=== PATIENT | female | born 1995 | race Hispanic/Latino ===

== ENCOUNTER → 2021-05-11 09:36 | Outpatient (CLI) | payer OTHER, SELFPAY ==
--- NOTE | 2021-05-11 09:42 | DI.US.S_ITS ---
PROCEDURE: US OB <= 14 WEEKS FETUS INDICATIONS: DATING. OUTSIDE/PRIOR DATING DATA: Last menstrual period (LMP): January 18, 2021. LMP-based estimated date of delivery (DONALD): October 25, 2021. First dating scan (date and location): May 11, 2021. Estimated date of delivery (DONALD) from first dating scan: November 20, 2021. TECHNIQUE: Real-time scanning was performed of the fetus and maternal pelvic organs, with image documentation. Endovaginal scanning was also performed to better visualize the fetus and maternal ovaries. COMPARISON: None. FINDINGS: Embryo: Single living intrauterine gestation is present with an estimated sonographic gestational age of approximately 12 weeks and 3 days based off crown-rump length measurement of 5.8 cm. There is suggestion of a protruding mass from the anterior abdominal wall containing possible stomach and abdominal organs. No perigestational hemorrhage. Heart rate: 160 Measurement variability in dating: +/- 4 weeks by LMP, +/- 7 days by mean sac diameter (use before 6 weeks gestation if crown-rump length not able to be measured), +/- 5 days by crown-rump length (up to 8 weeks 6 days gestation), +/- 7 days by crown-rump length (up to 13 weeks 6 days gestation). Maternal organs: Ovaries demonstrate probable left corpus luteal cyst. IMPRESSION: Single living intrauterine gestation with estimated sonographic gestational age of approximately 12 weeks and 3 days based off crown-rump length measurement. This correlates with estimated dated delivery of approximately November 20, 2021. Dating between last menstrual period and sonographic measurements are discordant. Suggestion of protruding anterior abdominal mass containing possible stomach and other abdominal organs. 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 Recommend correlation with maternal risk factors and maternal medicine consultation to further evaluate and confirm. Dictated by: Iain Lowry M.D. on 05/11/2021 at 10:57 Approved by: Iain Lowry M.D. on 05/11/2021 at 11:07
== END ==
PROVIDERS: Referring Provider Specialist; Visit Provider Specialist
DX: Z34.02 Encounter for supervision of normal first pregnancy, second trimester (principal); Z3A.12 12 weeks gestation of pregnancy
CPT/HCPCS: 76801; 76817

== ENCOUNTER → 2021-05-19 15:51 | Outpatient (CLI) | payer OTHER, SELFPAY ==
[2021-05-19 16:15] LABS: Add Manual Diff / Slide Review NO; Basophils Absolute Auto 0 /uL (0-100); Basophils Percent Auto 0.4 % (0-2); Eosinophils Absolute Auto 100 /uL (0-450); Eosinophils Percent Auto 1.7 % (2-4); Hematocrit 35.4 % (36-46); Hemoglobin 12.1 g/dL (12.0-16.0); Lymphocytes Absolute Auto 1500 /uL (1100-4500); Lymphocytes Percent Auto 17.7 % (25-40); Mean Corpuscular Hemoglobin 28.9 PG (26-34); Mean Corpuscular Volume 85.1 fL (80-100); Monocytes Absolute Auto 400 /uL (0-900); Neutrophils Absolute Auto 6200 /uL (1500-7000); Neutrophils Percent Auto 75.2 % (50-75); Platelet Count 207 X10^3/uL (150-400); Red Blood Cell Count 4.17 X10^6/uL (4.0-5.2); Red Cell Distribution Width 13.3 % (11.6-14.8); White Blood Cell Count 8.2 X10^3/uL (4.5-11.0)
[2021-05-19 18:56] LABS: HIV 1 & 2 Ab/Ag 4th Gen Combo NEGATIVE (NEGATIVE); Hep C Virus Ab w/Reflex Quant NEGATIVE s/c (NEGATIVE); Hepatitis B Surface Antigen NEGATIVE s/c (NEGATIVE); Rubella Antibody IgG 12.3 IU/mL (>15)
[2021-05-19 19:43] LABS: Appearance Urine UA SL CLOUDY; Bilirubin Urine UA NEGATIVE (NEGATIVE); Color Urine UA YELLOW; Glucose Urine UA NEGATIVE (Negative); Ketones Urine UA NEGATIVE (NEGATIVE); Leukocyte Esterase Urine UA 3+ (NEGATIVE); Nitrite Urine UA NEGATIVE (Negative); Occult Blood Urine UA TRACE-LYSED (Negative); Protein Urine UA NEGATIVE (Negative); Specific Gravity Urine UA 1.025 (1.000-1.035); Urobilinogen Urine UA 0.2 E.U./dL (0.2)
[2021-05-19 20:01] LABS: Amorphous Sediment Urine 1+; Bacteria Urine Many (>30); RBC Urine 1-5/HPF (0-5/HPF); Squamous Epithelial Cell Urine 1-5 /HPF (0-5/HPF); WBC Urine 10-30/HPF (0-5/HPF); pH Urine UA 5.5 (4.5-8.0)
[2021-05-19 20:02] LABS: Mucus Urine 1+ (Negative)
[2021-05-20 05:33] LABS: RPR Screen Non Reactive (Non Reactive)
[2021-05-20 08:10] LABS: Varicella IgG Antibody 1790 index (Immune >165)
== END ==
PROVIDERS: Referring Provider Specialist; Visit Provider Specialist
DX: Z34.02 Encounter for supervision of normal first pregnancy, second trimester (principal)
CPT/HCPCS: 36415; 80055; 81003; 81015; 86787; 86803; 86850; 86900; 86901; 87086; 87389

== ENCOUNTER → 2021-05-26 14:45 | Outpatient (ROUT) | payer OTHER, SELFPAY ==
[2021-05-26 16:17] LABS: Urine N gonorrhoeae NOT DETECTED
[2021-05-26 16:24] LABS: Urine Chlamydia NOT DETECTED
== END ==
PROVIDERS: Visit Provider Specialist
DX: Z34.02 Encounter for supervision of normal first pregnancy, second trimester (principal); Z3A.14 14 weeks gestation of pregnancy
CPT/HCPCS: 87491; 87591

== ENCOUNTER 2021-06-25 08:22 | Inpatient (IN) | payer OTHER, SELFPAY ==
[2021-06-25] MEDS: MORPHINE 10 MG/ML INJ IM (09:04)
[2021-06-25 09:18] VITALS: BP 117/65
[2021-06-25] MEDS: LACTATED RINGERS 1,000 ML 100 ML IV (09:30)
[2021-06-25 09:44] LABS: Add Manual Diff / Slide Review NO; Basophils Absolute Auto 0 /uL (0-100); Basophils Percent Auto 0.4 % (0-2); Eosinophils Absolute Auto 100 /uL (0-450); Eosinophils Percent Auto 1.4 % (2-4); Hematocrit 34.5 % (36-46); Hemoglobin 11.7 g/dL (12.0-16.0); Lymphocytes Absolute Auto 1100 /uL (1100-4500); Lymphocytes Percent Auto 14.5 % (25-40); Mean Corpuscular Volume 85.3 fL (80-100); Monocytes Absolute Auto 400 /uL (0-900); Neutrophils Absolute Auto 5800 /uL (1500-7000); Neutrophils Percent Auto 78.7 % (50-75); Platelet Count 191 X10^3/uL (150-400); Red Blood Cell Count 4.04 X10^6/uL (4.0-5.2); Red Cell Distribution Width 13.6 % (11.6-14.8); White Blood Cell Count 7.4 X10^3/uL (4.5-11.0)
[2021-06-25] MEDS: FENT 2MCG/ML BUPIV 0.125% EPI 200 MCG/100 ML PLAST..BAG 10 MCG EPIDURAL (09:55)
--- NOTE | 2021-06-25 09:57 | PM.OBHP.IH.1 ---
OB HPI Date/Time Date of admission: 06/25/21 Date Patient Seen: 06/25/21 Time Patient Seen: 09:58 History of Present Condition Chief complaint: LABOR DONALD Calculator Estimated Delivery Date Method Current WG Current Estimate 11/20/21 Ultrasound #1 18w 6d Other Estimates 10/25/21 LMP (Uncertain) 22w 4d Estimated Gestational Age (weeks): 18+6 : 1 Para: 0 care: limited care (Late care at 14 weeks gestation. One visit here and 2 visits with Maternal Medicine.), initiated at week # (14), number of visits (1) and pounds weight gain (10) Dating criteria OB: based on 1st trimester US only Ultrasounds: abnormal US findings (Omphalocele seen at first ultrasound at 14 weeks, referred to Maternal Medicine) Abnormal ultrasound findings: Omphalocele seen at 14 weeks ultrasound Obstetrical complications: growth restriction and other (Omphalocele) Medical complications OB: none Indications Indication for induction OB: other ( demise, omphalocele, spontaneous labor) Preadmission Labs Last OB Lab Results: Blood Type A Negative 05/19/21 15:55 05/19/21 Antibody Screen Negative 05/19/21 15:55 05/19/21 Hematocrit 35.4 % (36-46) L 05/19/21 15:55 05/19/21 Hemoglobin 12.1 g/dL (12.0-16.0) 05/19/21 15:55 05/19/21 Hepatitis B Surface Antigen Negative s/c (NEGATIVE) 05/19/21 15:55 05/19/21 Hepatitis C Antibody Negative s/c (NEGATIVE) 05/19/21 15:55 05/19/21 Rubella Antibody 12.3 IU/mL (>15) L 05/19/21 15:55 05/19/21 Varicella-Zoster IgG Antibody 1790 index (Immune >165) 05/19/21 15:55 05/19/21 -: Chlamydia screen: negative, Gonorrhea screen: negative and Urine: negative -: PAP smear: Normal External Labs -: Chlamydia screen: negative, Gonorrhea screen: negative and Urine: negative PAP: Normal Evaluation Evaluation Contraction Frequency (minutes): 4 PFSH Medical History (Updated 05/26/21 @ 20:42 by Gretel Adorno) History of being hospitalized (~2010) Migraine (~01/2021) Rash (~03/2021) Surgical History (Updated 05/26/21 @ 20:42 by Gretel Adorno) Anesthesia H/O skin graft (~2010) History of surgery on arm (~2010) Family History (Updated 05/16/21 @ 14:43 by Ayleen Gilbert RN) Father Healthy adult Mother Healthy adult Asthma Grandfather No problems noted. Grandmother No problems noted. Grandfather No problems noted. Grandmother Family disruption due to marital estrangement Sister Asthma Brother Asthma Brother Asthma Brother No problems noted. Family/Other Asthma Social History marital status: number of children: 0 household members: spouse lives independently: Yes caregiver/support person: No pets and animals: No education level: high school (some) occupational status: unemployed current occupational exposures/hazards: No special [place] needs: No Smoking Status: Never smoker second hand exposure: No alcohol intake: former (pre- : very occasionally/rare) substance use type: does not use Meds Home Medications and Allergies Home Medications Medication Instructions Recorded Confirmed Type prenat.vits,monika,mic-yuvd-izssf 1 tab PO DAILY 05/16/21 05/16/21 History Allergies Allergy/AdvReac Type Severity Reaction Status Date / Time No Known Drug Allergies Allergy Verified 05/16/21 14:16 OB Exam Narrative Exam Narrative: Generally: Patient in moderate distress secondary to contractions Lungs: Clear to auscultation bilaterally Cardiovascular: Regular rate and rhythm Fundus: U -2 Extremities: No edema Vaginal exam: Appears to be some parts in the vagina, but due to omphalocele did not want to pull. Some small blood clots. 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
[2021-06-25] MEDS: miSOPROStoL 200 MCG TABLET 400 MCG SL ×2 (10:20→13:21)
[2021-06-25 11:38] LABS: COVID19 - ADMIT (NP swab/PCR) Negative (Negative)
[2021-06-25] MEDS: OXYTOCIN PREMIX 30 UNIT/500 ML PLAST..BAG 200 UNIT IV (16:24)
--- NOTE | 2021-06-25 16:43 | PM.OBPRVD ---
Events: Other ( demise, omphalocele) Labor & Delivery Delivery date: 06/25/21 Intrapartal Events: None Cervical ripening method: none Induction method: other (misoprotol x 2 doses) Delivery monitor: none Route of delivery: Episiotomy description: None L&D Laceration Description: None Estimated blood loss (mL): 500 Anesthesia Type: Epidural Complications: None Narrative: Patient pushed x 1 and feet were visible at the introitus. With several more pushes, a nonviable fetus, with attached placenta delivered over an intact perineum at 4:15 p.m.. Placenta was intact. Pitocin was given in the IV fluids. Baby wrapped and given to parents. Pitocin given in the IV fluids. Mom stable to recovery. [place] Baby 1: Infant gender: Female Presentation: other (feet) Placenta delivery description: Spontaneous (With fetus) score (1 min): 0 score (5 min): 0 score (10 min): 0 Plan for aftercare: Routine care
[2021-06-25] MEDS: OXYCODONE IR 5 MG TABLET PO (17:07)
--- NOTE | 2021-06-26 11:34 | PM.OBDS.1 ---
Discharge Providers Provider Date of admission: 06/25/21 08:22 Discharge Date: 06/26/21 Primary care physician: Doctor Jovana MD Discharge provider: Juanis Atkins MD Summary Hospital Course Date Patient Seen: 06/26/21 Time Patient Seen: 11:35 Diagnoses: 18+6/7 weeks gestation Intrauterine demise Omphalocele Induction of labor with Misoprostol Spontaneous vaginal delivery Hospital Course: Patient is a 25-year-old 1 para 0100 who presented with vaginal bleeding and abdominal cramping on June 25, 2021. She had a known intrauterine demise at 18 and 6 seventh weeks gestation. 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 She received an epidural for pain management. She was started on misoprostol orally for induction of labor. She received 2 doses of 400 micro g. She had a spontaneous vaginal delivery that included the membranes and placenta. Her course was unremarkable. Her bleeding is minimal. Occasional cramping. Peripartum Data Delivery Method: Natural Vaginal Laceration Description: None Episiotomy description: None Procedures: Epidural analgesia Spontaneous vaginal delivery Induction of labor with misoprostol complications: none 1: Gender: Female Disposition of : (To Pathology) Status at Discharge Cognitive/behavioral status at discharge: oriented Functional status at discharge: independent ambulation Overall status at discharge: patient is progressing back to baseline Time Spent with Patient Time attestation: Total time spent providing and/or coordinating discharge services: Time spent: Less than 30 minutes Objective Labs Result Diagrams: 06/25/21 09:35 Exam Narrative Exam Narrative: Generally: Sitting up in bed, no acute distress Fundus: Firm at U-4 Ext: Negative Viviana's Discharge Plan Discharge Plan Patient Disposition: Home Provider Discharge Comment: Call with fever, chills or bleeding vaginally more than a pad in an hour Discharge orders & Medications Prescriptions: Continued prenat.vits,monika,laj-bjni-cljod Tablet 1 tab PO DAILY RF: 0 Follow up/Referrals: Gayathri Posadas MD [Physician] - 1 Month (My office will call to schedule f/u in 4 weeks) Diet/Activity/Treatments Diet: Regular Activity: Nothing in the vagina until bleeding has stopped Skin/Wound/Dressing Care Report to your healthcare provider any signs of infection, such as:: chills, fever, increased pain and unusual drainage Visit Report/Discharge Packet Instructions: DI for Labor and Delivery, Vaginal Discharge Data Primary Care Provider: Miscellaneous,Doctor Attending Provider: Juanis Atkins
[2021-06-26 13:41] VITALS: BP 105/65; PULSE 90; RESP 18; TEMP 36.6
[2021-06-26] MEDS: RHO(D) IMMUNE GLOBULIN 1,500 UNIT SYRINGE 1500 UNIT IM (15:21)
[2021-06-26] MEDS: MEASLES,MUMPS,RUBELLA VACC/PF 0.5 ML VIAL SUBCUT (15:21)
== END 2021-06-26 15:34 | disposition home or self-care (01) | DRG 807 ==
PROVIDERS: Family Medicine; Admitting Provider Obstetrics & Gynecology; PCP Family Medicine; Referring Provider Specialist; Visit Provider Obstetrics & Gynecology
DX: O02.1 Missed abortion (principal); Z37.1 Single stillbirth; O36.5920 Maternal care for other known or suspected poor fetal growth, second trimester, not applicable or unspecified; O35.8XX0 Maternal care for other (suspected) fetal abnormality and damage, not applicable or unspecified; Z3A.18 18 weeks gestation of pregnancy; Z20.822 Contact with and (suspected) exposure to COVID-19
CPT/HCPCS: 01967; 36415; 59050; 59855; 85025; 86850; 86900; 86901; 87635; C9803; G0378; G0379; J2270; J2590; J2790; S0191

== ENCOUNTER 2021-09-09 18:32 | Emergency (ER) | payer OTHER, SELFPAY ==
[2021-09-09 18:36] VITALS: BP 141/75; PULSE 99; RESP 14; TEMP 36.8; O2SAT 99; BMI 24.3
--- NOTE | 2021-09-09 18:45 | ED.GIBLEED ---
HPI - GI Bleed General Chief complaint: GI Bleed Stated complaint: Bleeding With BM, Abd Pain Time Seen by Provider: 09/09/21 18:40 History of Present Illness HPI Narrative: 26F nonsmoker with no significant medical history is a at unknown dates (last menstrual cycle started August 01) presents with significant other and a chief complaint of 3 episodes of painless bright red bleeding per rectum with bowel movements over the past few days. She states that she has mild cramping in her lower abdomen that improves with a bowel movement and then builds. She denies any fever chills. She has no nausea, vomiting or diarrhea. She denies any history of the same. She is not dizzy nor weak or lightheaded. She denies any change in diet or medication. She denies any vaginal bleeding, discharge or leakage of fluid Related Data Allergies Allergy/AdvReac Type Severity Reaction Status Date / Time No Known Drug Allergies Allergy Verified 09/09/21 18:40 Review of Systems Review of Systems Narrative: GENERAL: Denies chills, fatigue, malaise, fever, sweats. HEENT: Denies sinus pain, ear pain, sore throat, difficulty swallowing, dizziness. RESPIRATORY: Denies dyspnea, cough, wheezing, hemoptysis, sputum. CARDIOVASCULAR: Denies chest pain, palpitations, orthopnea, edema, GASTROINTESTINAL: See HP : Denies dysuria, frequency, incontinence, hematuria, urinary retention. MUSCULOSKELETAL: denies weakness, joint pain, or bony pain SKIN: Denies rash, skin lesions, or other NEUROLOGIC: Denies weakness, headache, numbness, change in speech, confusion, seizures, incoordination. PSYCHIATRIC: No concerning psychosocial issues. 12 point review of systems is negative except for those stated above Patient History Medical History omphalocele in , antepartum, single gestation History of being hospitalized (~2010) Migraine (~01/2021) Rash (~03/2021) Surgical History Anesthesia H/O skin graft (~2010) History of surgery on arm (~2010) Family History Father Healthy adult Mother Healthy adult Asthma Grandfather No problems noted. Grandmother No problems noted. Grandfather No problems noted. Grandmother Family disruption due to marital estrangement Sister Asthma Brother Asthma Brother Asthma Brother No problems noted. Family/Other Asthma Social History marital status: number of children: 0 household members: spouse lives independently: Yes caregiver/support person: No pets and animals: No education level: high school (some) occupational status: unemployed current occupational exposures/hazards: No special [place] needs: No Smoking Status: Never smoker second hand exposure: No alcohol intake: former (pre- : very occasionally/rare) substance use type: does not use Smoking Status: Never smoker Exam Narrative Exam Narrative: GENERAL: [26 year old patient appears stated age. Well-developed patient, in mild distress. HEAD: Atraumatic. Normocephalic. EYES: Pupils equal round and reactive. Extraocular motions intact. No scleral icterus. No injection or drainage. ENT: Nose without bleeding, purulent drainage. Throat without erythema, tonsillar hypertrophy or exudate. Airway patent. NECK: Trachea midline. Non tender CARDIOVASCULAR: Regular rate and rhythm without murmurs, gallops, or rubs. RESPIRATORY: Clear to auscultation. Breath sounds equal bilaterally. No wheezes, rales, or rhonchi. GASTROINTESTINAL: Abdomen soft, non-tender, nondistended. RECTAL: No pain, fissure, hemorrhoid noted. No blood noted. This is performed with patient permission and female nursing farm equipment engine mechanic at bedside EXTREMITIES: No edema or joint tenderness. BACK: Nontender without deformity or crepitance. No flank tenderness. NEURO: AOx3. SKIN: No rash or erythema of visible areas Initial Vital Signs Initial Vital Signs: Vital Signs Temperature 98.3 F 09/09/21 18:36 Pulse Rate 99 H 09/09/21 18:36 Respiratory Rate 14 09/09/21 18:36 Blood Pressure 141/75 H 09/09/21 18:36 Pulse Oximetry 99 09/09/21 18:36 Course Orders Ordered: ED Orders 09/09/21 18:45 Complete Blood Count AUTO DIFF Stat Comprehensive Metabolic Panel Stat 09/09/21 18:50 Prothrombin Time INR Stat Type and Screen Stat Vital Signs Vital signs: Vital Signs - 8 hr 09/09/21 18:36 09/09/21 19:00 09/09/21 19:41 Temperature 98.3 F Pulse Rate 99 H 79 84 Respiratory Rate 14 15 16 Blood Pressure 141/75 H 106/84 Pulse Oximetry 99 98 99 MDM - GI Bleed Lab Data Result diagrams: 09/09/21 18:45 09/09/21 18:45 Labs: Lab Results 09/09/21 09/09/21 09/09/21 Range/Units 18:45 18:45 18:50 WBC 6.3 (4.5-11.0) X10^3/uL RBC 4.57 (4.0-5.2) X10^6/uL Hgb 13.1 (12.0-16.0) g/dL Hct 37.6 (36-46) % MCV 82.2 (80-100) fL MCH 28.6 (26-34) PG MCHC 34.8 (30-36) % RDW 12.5 (11.6-14.8) % Plt Count 238 (150-400) X10^3/uL Neut % (Auto) 61.2 (50-75) % Lymph % (Auto) 30.4 (25-40) % Boundary % (Auto) 5.7 (3-14) % Eos % (Auto) 1.9 L (2-4) % Baso % (Auto) 0.8 (0-2) % Neut # (Auto) 3900 (3817-3893) /uL Lymph # (Auto) 1900 (2079-6418) /uL Boundary # (Auto) 400 (0-900) /uL Eos # (Auto) 100 (0-450) /uL Baso # (Auto) 0 (0-100) /uL PT 11.8 (10.1-12.7) SECONDS INR 1.0 (0.9-1.3) Sodium 139 (137-145) mmol/L Potassium 3.7 (3.4-5.1) mmol/L Chloride 105 (98-107) mmol/L Carbon Dioxide 27 (22-32) mmol/L BUN 11 (7-17) mg/dL Creatinine 0.73 (0.52-1.04) mg/dL Estimated GFR > 60.0 (>60) mL/min BUN/Creatinine Ratio 15.1 (6-22) Glucose 93 (70-100) mg/dL Calcium 9.7 (8.4-10.2) mg/dL Total Bilirubin 0.3 (0.2-1.3) mg/dL AST 26 (14-36) IU/L ALT 22 (<35) IU/L Alkaline Phosphatase 43 (38-126) U/L Total Protein 7.8 (6.3-8.2) g/dL Albumin 4.7 (3.5-5.0) g/dL Globulin 3.1 (1.7-4.1) g/dL Albumin/Globulin Ratio 1.5 (1.0-2.8) Blood Type Antibody Screen 09/09/21 Range/Units 18:50 WBC (4.5-11.0) X10^3/uL RBC (4.0-5.2) X10^6/uL Hgb (12.0-16.0) g/dL Hct (36-46) % MCV (80-100) fL MCH (26-34) PG MCHC (30-36) % RDW (11.6-14.8) % Plt Count (150-400) X10^3/uL Neut % (Auto) (50-75) % Lymph % (Auto) (25-40) % Boundary % (Auto) (3-14) % Eos % (Auto) (2-4) % Baso % (Auto) (0-2) % Neut # (Auto) (8420-7847) /uL Lymph # (Auto) (9102-1743) /uL Boundary # (Auto) (0-900) /uL Eos # (Auto) (0-450) /uL Baso # (Auto) (0-100) /uL PT (10.1-12.7) SECONDS INR (0.9-1.3) Sodium (137-145) mmol/L Potassium (3.4-5.1) mmol/L Chloride (98-107) mmol/L Carbon Dioxide (22-32) mmol/L BUN (7-17) mg/dL Creatinine (0.52-1.04) mg/dL Estimated GFR (>60) mL/min BUN/Creatinine Ratio (6-22) Glucose (70-100) mg/dL Calcium (8.4-10.2) mg/dL Total Bilirubin (0.2-1.3) mg/dL AST (14-36) IU/L ALT (<35) IU/L Alkaline Phosphatase (38-126) U/L Total Protein (6.3-8.2) g/dL Albumin (3.5-5.0) g/dL Globulin (1.7-4.1) g/dL Albumin/Globulin Ratio (1.0-2.8) Blood Type A Negative Antibody Screen Negative Discharge Plan Departure Patient Disposition: Home Clinical Impression: Lower gastrointestinal hemorrhage Activity Restrictions/Additional Instructions: *You have been diagnosed with [lower GI bleeding. Your history and physical exam as well as lab work are very reassuring, as we discussed this is usually from non emergent cause that would not require any specific intervention *What to do: *Please continue to take your regular medications as directed. * please consume a clear liquid diet for the next 48 hours and then advance slowly to your normal diet *Please follow up with your primary care provider in 2-3 days, call for an appointment. Let them know you were seen in the Emergency Department and that we ask that you be seen in follow up. We will electronically transmit a record of today's note if your PCP is in our system *If you do not have a primary care provider please contact the [facility] Resource line at [phone]. They will ask some questions about your medical history and help get you set up with a doctor in the community. *Return to Emergency Department if you should have any new, worsening or concerning symptoms, such as [fever greater than 101 F, shaking chills, worsening pain, persistent or heavier bleeding or other bothersome symptoms] Referrals: Iain Hamm MD [Primary Care Provider] -
[2021-09-09 19:00] VITALS: PULSE 79; RESP 15; O2SAT 98
[2021-09-09 19:02] LABS: Add Manual Diff / Slide Review NO; Basophils Absolute Auto 0 /uL (0-100); Basophils Percent Auto 0.8 % (0-2); Eosinophils Absolute Auto 100 /uL (0-450); Eosinophils Percent Auto 1.9 % (2-4); Hematocrit 37.6 % (36-46); Hemoglobin 13.1 g/dL (12.0-16.0); Lymphocytes Absolute Auto 1900 /uL (1100-4500); Lymphocytes Percent Auto 30.4 % (25-40); Mean Corpuscular HGB Conc 34.8 % (30-36); Mean Corpuscular Hemoglobin 28.6 PG (26-34); Mean Corpuscular Volume 82.2 fL (80-100); Monocytes Absolute Auto 400 /uL (0-900); Monocytes Percent Auto 5.7 % (3-14); Neutrophils Absolute Auto 3900 /uL (1500-7000); Neutrophils Percent Auto 61.2 % (50-75); Platelet Count 238 X10^3/uL (150-400); Red Blood Cell Count 4.57 X10^6/uL (4.0-5.2); Red Cell Distribution Width 12.5 % (11.6-14.8); White Blood Cell Count 6.3 X10^3/uL (4.5-11.0)
[2021-09-09 19:11] LABS: Prothrombin Time 11.8 SECONDS (10.1-12.7)
[2021-09-09 19:17] LABS: Alanine Aminotransferase 22 IU/L (<35); Albumin 4.7 g/dL (3.5-5.0); Albumin Globulin Ratio 1.5 (1.0-2.8); Alkaline Phosphatase 43 U/L (38-126); Aspartate Aminotransferase 26 IU/L (14-36); BUN Creatinine Ratio 15.1 (6-22); Bilirubin Total 0.3 mg/dL (0.2-1.3); Blood Urea Nitrogen 11 mg/dL (7-17); Calcium 9.7 mg/dL (8.4-10.2); Carbon Dioxide 27 mmol/L (22-32); Chloride 105 mmol/L (98-107); Estimated Glomerular Filt Rate > 60.0 mL/min (>60); Globulin 3.1 g/dL (1.7-4.1); Glucose 93 mg/dL (70-100); HEMOLYSIS < 15 (0-50); Potassium 3.7 mmol/L (3.4-5.1); Sodium 139 mmol/L (137-145); Total Protein 7.8 g/dL (6.3-8.2)
[2021-09-09 19:41] VITALS: BP 106/84; PULSE 84; RESP 16; O2SAT 99
== END 2021-09-09 19:41 | disposition home or self-care (01) ==
PROVIDERS: Emergency Provider Emergency Medicine; PCP Family Medicine
DX: K92.2 Gastrointestinal hemorrhage, unspecified (principal)
CPT/HCPCS: 36415; 80053; 85025; 85610; 86850; 86900; 86901; 99283

== ENCOUNTER → 2021-09-28 08:10 | Outpatient (CLI) | payer OTHER, SELFPAY ==
[2021-09-28 08:54] LABS: Add Manual Diff / Slide Review NO; Basophils Absolute Auto 0 /uL (0-100); Basophils Percent Auto 0.5 % (0-2); Eosinophils Absolute Auto 100 /uL (0-450); Eosinophils Percent Auto 1.4 % (2-4); Hematocrit 36.3 % (36-46); Hemoglobin 12.3 g/dL (12.0-16.0); Lymphocytes Absolute Auto 1500 /uL (1100-4500); Lymphocytes Percent Auto 26.9 % (25-40); Mean Corpuscular Hemoglobin 27.9 PG (26-34); Monocytes Absolute Auto 300 /uL (0-900); Monocytes Percent Auto 5.6 % (3-14); Neutrophils Absolute Auto 3600 /uL (1500-7000); Neutrophils Percent Auto 65.6 % (50-75); Platelet Count 228 X10^3/uL (150-400); Red Blood Cell Count 4.42 X10^6/uL (4.0-5.2); Red Cell Distribution Width 12.9 % (11.6-14.8); White Blood Cell Count 5.6 X10^3/uL (4.5-11.0)
[2021-09-28 09:50] LABS: Hepatitis B Surface Antigen NEGATIVE s/c (NEGATIVE)
[2021-09-28 10:07] LABS: HIV 1 & 2 Ab/Ag 4th Gen Combo NEGATIVE (NEGATIVE); Hep C Virus Ab w/Reflex Quant NEGATIVE s/c (NEGATIVE)
[2021-09-28 10:49] LABS: Appearance Urine UA CLEAR; Bilirubin Urine UA NEGATIVE (NEGATIVE); Color Urine UA YELLOW; Glucose Urine UA NEGATIVE (Negative); Ketones Urine UA NEGATIVE (NEGATIVE); Leukocyte Esterase Urine UA TRACE (NEGATIVE); Nitrite Urine UA NEGATIVE (Negative); Occult Blood Urine UA NEGATIVE (Negative); Protein Urine UA NEGATIVE (Negative); Specific Gravity Urine UA <=1.005 (1.000-1.035); Urobilinogen Urine UA 0.2 E.U./dL (0.2)
[2021-09-28 10:51] LABS: pH Urine UA 5.5 (4.5-8.0)
[2021-09-28 10:57] LABS: RBC Urine None Seen (0-5/HPF); Squamous Epithelial Cell Urine 0-1 /HPF (0-5/HPF); WBC Urine 0-1/HPF (0-5/HPF)
[2021-09-28 10:58] LABS: Bacteria Urine None Seen
[2021-09-28 14:35] LABS: Urine N gonorrhoeae NOT DETECTED
[2021-09-28 14:36] LABS: Urine Chlamydia NOT DETECTED
[2021-09-29 03:13] LABS: RPR Screen Non Reactive (Non Reactive)
[2021-09-29 09:09] LABS: Varicella IgG Antibody 1839 index (Immune >165)
== END ==
PROVIDERS: PCP Family Medicine; Visit Provider Specialist
DX: Z34.81 Encounter for supervision of other normal pregnancy, first trimester (principal)
CPT/HCPCS: 36415; 80055; 81003; 81015; 86787; 86803; 86850; 86870; 86886; 86900; 86901; 87086; 87389; 87491; 87591

== ENCOUNTER 2021-10-04 16:42 | Emergency (ER) | payer OTHER, SELFPAY ==
[2021-10-04 16:58] VITALS: BP 119/55; PULSE 76; RESP 20; TEMP 36.6; O2SAT 97
--- NOTE | 2021-10-04 17:17 | DI.US.S_ITS ---
PROCEDURE: US OB <= 14 WEEKS FETUS INDICATIONS: APROX 8 WEEKS, CRAMPING, SPOTTING OUTSIDE/PRIOR DATING DATA: Last menstrual period (LMP): 08/01/2021 LMP-based estimated date of delivery (DONALD): 05/08/2022 First dating scan (date and location): 09/28/2021 Estimated date of delivery (DONALD) from first dating scan: 05/16/2022 TECHNIQUE: Real-time scanning was performed of the fetus and maternal pelvic organs, with image documentation. Endovaginal scanning was also performed to better visualize the fetus and maternal ovaries. COMPARISON: [facility], , OB <= 14 WEEKS FETUS, 05/11/2021, 10:04. FINDINGS: Embryo: Intrauterine gestational sac is seen with yolk sac and pole. Barlow-rump length is 1.8 cm, consistent with an estimated gestational age of 8 weeks 2 days. This results in a ultrasound DONALD of 05/14/2022 Mixed echogenicity perigestational sac hemorrhage is seen adjacent to approximately half of the gestational sac. Heart rate: 185 beats per minute. Maternal organs: Probable right ovarian corpus luteum cyst is present. IMPRESSION: 1. Single live intrauterine with estimated gestational age of 8 weeks 2 days. 2. Probable perigestational sac hemorrhage abutting nearly half the circumference of the gestational sac predominantly inferiorly and to the right. We strive to produce accurate, complete, and clear reports of imaging services. To assist us in improving patient care, this report was composed using standard report templates and voice recognition software. Therefore, it may contain abnormal punctuation, insertions and/or omissions. Occasional wrong-word or sound-alike substitutions may occur. Though we review the report and make efforts to correct it, we do recommend that the report be read carefully in proper context to recognize any text inaccuracies. Dictated by: Hilario Mejia M.D. on 10/04/2021 at 19:18 Approved by: Hilario Mejia M.D. on 10/04/2021 at 19:22
--- NOTE | 2021-10-04 19:16 | ED_ITS ---
HPI - General Chief complaint: OB/Uterine Contractions Stated complaint: 8 WKS BLEEDING CRAMPING Time Seen by Provider: 10/04/21 18:09 Source: patient Mode of arrival: Ambulatory Limitations: no limitations History of Present Illness HPI Narrative: This is a 26-year-old A1 with prior spontaneous miscarriage. Patient states she is approximately 8 weeks by dates. She has seen her provider Dr. Posadas and had ultrasound in the office. Patient states she has started drilling cramping in the last 2 days which she describes as lower pelvic and bilateral low back. She had some light bleeding yesterday and today. Patient states no fevers or chills. No chest pain, no shortness of breath. She has had some nausea but no vomiting. She has not had any dysuria urgency or frequency. She has not had any large clots with her vaginal bleeding. No new discharge. No diarrhea constipation. She states she is otherwise healthy. Her only medications are vitamins. No prior surgeries. No tobacco, no recent alcohol, no illicit. She is accompanied by her . Related Data Home Medications Medication Instructions Recorded Confirmed prenat.vits,monika,[id number] 1 tab PO DAILY 09/26/21 09/28/21 Allergies Allergy/AdvReac Type Severity Reaction Status Date / Time No Known Drug Allergies Allergy Verified 09/28/21 08:07 Review of Systems Review of Systems ROS Unobtainable: All systems reviewed & are unremarkable except as noted in HPI and below Exam Narrative Exam Narrative: GENERAL: Alert and oriented x three, then well-appearing female in mild distress. HEENT: Head normocephalic, atraumatic, EOMI, pupils reactive, face symmetric, moist mucous membranes NECK: Supple, full range of motion CARDIOVASCULAR: Regular rate and rhythm without murmurs, rubs or gallops. RESPIRATORY: Breath sounds equal bilaterally, no wheezes rales or rhonchi. ABDOMEN: Soft, very mild suprapubic tenderness. Normoactive bowel sounds all 4 quadrants. No guarding or rebound, rigidity, no mass : No CVA tenderness EXTREMITIES: Normal range of motion, no clubbing or edema. Neurovascularly intact NEUROLOGICAL: Cranial nerves II through XII grossly intact. Moving all extremities SKIN: Warm, dry, no petechiae, no rashes or lesions. Initial Vital Signs Initial Vital Signs: Vital Signs Temperature 97.8 F 10/04/21 16:58 Pulse Rate 76 10/04/21 16:58 Respiratory Rate 20 10/04/21 16:58 Blood Pressure 119/55 L 10/04/21 16:58 Pulse Oximetry 97 10/04/21 16:58 Course Orders Ordered: ED Orders 10/04/21 17:17 US OB <= 14 weeks fetus Stat 10/04/21 19:28 Complete Blood Count AUTO DIFF Stat Comprehensive Metabolic Panel Stat HCG Quantitative /Beta subunit Stat Discontinued Medications Acetaminophen (Acetaminophen 325 Mg Tablet) 650 mg PO NOW ONE Stop: 10/04/21 19:26 Last Admin: 10/04/21 19:52 Dose: 650 mg Documented by: PRADIP Rho Immune Globulin (Rho(D) Immune Globulin 1,500 Unit Syringe) 1,500 unit IM NOW ONE Stop: 10/04/21 20:41 Last Admin: 10/04/21 21:34 Dose: 1,500 unit Documented by: PRADIP Consultations Consultation #1: Dr. Posadas, patient is having vaginal bleeding in her 1st trimester. She does have a probable. Gestational sac hemorrhage abutting the gestational sac with a live intrauterine at 8 weeks 2 days consistent with dates. She received RhoGAM probably in July after having demise at 19 weeks. She does recommend repeating RhoGAM today. Vital Signs Vital signs: Vital Signs - 8 hr 10/04/21 21:38 Pulse Rate 80 Respiratory Rate 16 Blood Pressure 120/74 Pulse Oximetry 97 MDM - OB/Uterine Contractions Lab Data Result diagrams: 10/04/21 19:28 10/04/21 19:28 Labs: Lab Results 10/04/21 10/04/21 Range/Units 19:28 19:28 WBC 6.9 (4.5-11.0) X10^3/uL RBC 4.64 (4.0-5.2) X10^6/uL Hgb 12.9 (12.0-16.0) g/dL Hct 37.7 (36-46) % MCV 81.1 (80-100) fL MCH 27.7 (26-34) PG MCHC 34.2 (30-36) % RDW 13.4 (11.6-14.8) % Plt Count 236 (150-400) X10^3/uL Neut % (Auto) 67.7 (50-75) % Lymph % (Auto) 25.3 (25-40) % Fallon % (Auto) 4.6 (3-14) % Eos % (Auto) 1.6 L (2-4) % Baso % (Auto) 0.8 (0-2) % Neut # (Auto) 4700 (3525-0582) /uL Lymph # (Auto) 1700 (9479-3845) /uL Fallon # (Auto) 300 (0-900) /uL Eos # (Auto) 100 (0-450) /uL Baso # (Auto) 100 (0-100) /uL Sodium 136 L (137-145) mmol/L Potassium 3.6 (3.4-5.1) mmol/L Chloride 104 (98-107) mmol/L Carbon Dioxide 24 (22-32) mmol/L BUN 11 (7-17) mg/dL Creatinine 0.58 (0.52-1.04) mg/dL Estimated GFR > 60.0 (>60) mL/min BUN/Creatinine Ratio 19.0 (6-22) Glucose 97 (70-100) mg/dL Calcium 9.7 (8.4-10.2) mg/dL Total Bilirubin 0.5 (0.2-1.3) mg/dL AST 25 (14-36) IU/L ALT 20 (<35) IU/L Alkaline Phosphatase 47 (38-126) U/L Total Protein 8.2 (6.3-8.2) g/dL Albumin 4.8 (3.5-5.0) g/dL Globulin 3.4 (1.7-4.1) g/dL Albumin/Globulin Ratio 1.4 (1.0-2.8) HCG, Quant 44852 mIU/mL Imaging Data US - OB: Radiologist's Impression: CullenZeeshansergeiminesh Hernández??26??F??1995 ? Allergy/Adv: No Known Drug Allergies (More??) Close Ultrasound (Signed) Hilario Mejia - 10/04/21 Ultrasound (Signed) Iain Lowry - 05/11/21 Launch?[address] [address] Ultrasound Report Signed Patient: Graeme Berman MR#: [id number] : 1995 Acct:[id number] Age/Sex: 26 / F Date of Service: 10/04/21 Loc: Accession Number: [id number] ?? Procedure: US OB <= 14 weeks fetus Ordering Provider: Michael Arceo D.O. PROCEDURE:? US OB <= 14 WEEKS FETUS ? INDICATIONS:? APROX 8 WEEKS, CRAMPING, SPOTTING ? OUTSIDE/PRIOR DATING DATA:? Last menstrual period (LMP):? 08/01/2021 LMP-based estimated date of delivery (DONALD):? 05/08/2022 First dating scan (date and location):? 09/28/2021 Estimated date of delivery (DONALD) from first dating scan:? 05/16/2022 ? TECHNIQUE:? Real-time scanning was performed of the fetus and maternal pelvic organs, with image documentation.? Endovaginal scanning was also performed to better visualize the fetus and maternal ovaries.? ? COMPARISON:? [facility], , OB <= 14 WEEKS FETUS, 05/11/2021, 10:04. ? FINDINGS:? ? Embryo:? Intrauterine gestational sac is seen with yolk sac and pole.? Sholes-rump length is 1.8 cm, consistent with an estimated gestational age of 8 weeks 2 days.? This results in a ultrasound DONALD of 05/14/2022 Mixed echogenicity perigestational sac hemorrhage is seen adjacent to approximately half of the gestational sac. Heart rate:? 185 beats per minute. ? Maternal organs:? Probable right ovarian corpus luteum cyst is present. ? IMPRESSION:? 1. Single live intrauterine with estimated gestational age of 8 weeks 2 days. 2. Probable perigestational sac hemorrhage abutting nearly half the circumference of the gestational sac predominantly inferiorly and to the right.? ? We strive to produce accurate, complete, and clear reports of imaging services. To assist us in improving patient care, this report was composed using standard report templates and voice recognition software. Therefore, it may contain abnormal punctuation, insertions and/or omissions. Occasional wrong-word or sound-alike substitutions may occur. Though we review the report and make efforts to correct it, we do recommend that the report be read carefully in proper context to recognize any text inaccuracies. ? ? ? Dictated by: Hilario Mejia M.D. on 10/04/2021 at 19:18 ? ? Approved by: Hilario Mejia M.D. on 10/04/2021 at 19:22?? MDM Narrative Medical decision making narrative: Female comes emergency department with vaginal spotting and cramping at 8 weeks by dates and with ultrasound with Dr. Posadas her OB provider. Patient has received RhoGAM for prior demise. This was approximately in July. She does have alisson gestational sac. Discussed with her OB provider who recommends repeating RhoGAM today. Plan for follow-up. All questions answered with patient her imaging and labs reviewed. Discharge Plan Departure Patient Disposition: Home Clinical Impression: Vaginal bleeding in Instructions: DI for Vaginal Bleeding During Activity Restrictions/Additional Instructions: Follow-up with Dr. Posadas for recheck. Your case was discussed with Dr. Posadas today she is aware of your findings on your ultrasound. You may continue with Tylenol up to a 1000 mg every 8 hours as needed. Pelvic rest, no having lifting greater than 25 lb, no sexual activity for tampons or intravaginal objects until cleared by jig and fixture repairer. Return for fevers, rapidly worsening abdominal pain, persistent vomiting, lightheadedness or passing out, for having increasing vaginal bleeding with large clots, lower than 1 pad an hour or other new or concerning symptoms. Prescriptions: No Action prenat.vits,monika,[id number] Tablet 1 tab PO DAILY 0RF Referrals: Iain Hamm MD [Primary Care Provider] -
[2021-10-04 19:45] LABS: Add Manual Diff / Slide Review NO; Basophils Absolute Auto 100 /uL (0-100); Basophils Percent Auto 0.8 % (0-2); Eosinophils Absolute Auto 100 /uL (0-450); Eosinophils Percent Auto 1.6 % (2-4); Hematocrit 37.7 % (36-46); Hemoglobin 12.9 g/dL (12.0-16.0); Lymphocytes Absolute Auto 1700 /uL (1100-4500); Lymphocytes Percent Auto 25.3 % (25-40); Mean Corpuscular HGB Conc 34.2 % (30-36); Mean Corpuscular Hemoglobin 27.7 PG (26-34); Mean Corpuscular Volume 81.1 fL (80-100); Monocytes Absolute Auto 300 /uL (0-900); Monocytes Percent Auto 4.6 % (3-14); Neutrophils Absolute Auto 4700 /uL (1500-7000); Neutrophils Percent Auto 67.7 % (50-75); Platelet Count 236 X10^3/uL (150-400); Red Blood Cell Count 4.64 X10^6/uL (4.0-5.2); Red Cell Distribution Width 13.4 % (11.6-14.8); White Blood Cell Count 6.9 X10^3/uL (4.5-11.0)
[2021-10-04] MEDS: ACETAMINOPHEN 325 MG TABLET 650 MG PO (19:52)
[2021-10-04 20:08] LABS: Alanine Aminotransferase 20 IU/L (<35); Albumin 4.8 g/dL (3.5-5.0); Albumin Globulin Ratio 1.4 (1.0-2.8); Alkaline Phosphatase 47 U/L (38-126); Aspartate Aminotransferase 25 IU/L (14-36); Bilirubin Total 0.5 mg/dL (0.2-1.3); Blood Urea Nitrogen 11 mg/dL (7-17); Calcium 9.7 mg/dL (8.4-10.2); Carbon Dioxide 24 mmol/L (22-32); Chloride 104 mmol/L (98-107); Estimated Glomerular Filt Rate > 60.0 mL/min (>60); Globulin 3.4 g/dL (1.7-4.1); Glucose 97 mg/dL (70-100); HEMOLYSIS < 15 (0-50); Potassium 3.6 mmol/L (3.4-5.1); Sodium 136 mmol/L (137-145); Total Protein 8.2 g/dL (6.3-8.2)
[2021-10-04 20:49] LABS: HCG Quantitative /Beta subunit 76527 mIU/mL
[2021-10-04] MEDS: RHO(D) IMMUNE GLOBULIN 1,500 UNIT SYRINGE 1500 UNIT IM (21:34)
[2021-10-04 21:38] VITALS: BP 120/74; PULSE 80; RESP 16; O2SAT 97
== END 2021-10-04 21:39 | disposition home or self-care (01) ==
PROVIDERS: Emergency Medicine; Emergency Provider Emergency Medicine; PCP Family Medicine
DX: O20.9 Hemorrhage in early pregnancy, unspecified (principal); Z3A.08 8 weeks gestation of pregnancy; Z87.59 Personal history of other complications of pregnancy, childbirth and the puerperium
CPT/HCPCS: 36415; 76801; 76817; 80053; 84702; 85025; 96372; 99284; J2790